=== PATIENT | male | born 1950 | race Hispanic/Latino ===

== ENCOUNTER → 2019-11-08 | Outpatient (CLI) | payer OTHER ==
[~2019-11-08] MED LIST: ASPI-1197 PO; CLOP75TA32 PO; DILT120T PO; HYDR25TA PO; IOHEXOL 350 MG/ML 100ML INFUS..BTL IV ONE; LEVO500T2 PO; LOSA100T58 PO; NITR0.4T SL; OMEP40CA13 PO; PRAV40TA3 PO
== END | disposition home or self-care (01) ==
LOC: RAH 08:13
PROVIDERS: ATTEND Internal Medicine Cardiovascular Disease
DX: I70.203 Unspecified atherosclerosis of native arteries of extremities, bilateral legs (principal); K55.1 Chronic vascular disorders of intestine; I71.4 Abdominal aortic aneurysm, without rupture
CPT/HCPCS: 75635; Q9967 ×2

== ENCOUNTER 2020-02-06 07:41 | Observation (INO) | payer OTHER ==
[~2020-02-06] VITALS: Ht 188 cm; Wt 128.8 kg
[2020-02-06] VITALS (9 sets, daily range): BP systolic 124–151; BP diastolic 62–79
[~2020-02-06 07:41] MED LIST changes: +BUPR150T8 PO; +CILO50TA PO; -DILT120T PO; +FURO40TA7 PO; -HYDR25TA PO; -IOHEXOL 350 MG/ML 100ML INFUS..BTL IV ONE; -LEVO500T2 PO; +MEMA5TAB42 PO; +METO25TA3 PO; -NITR0.4T SL; -OMEP40CA13 PO; +PANT40TA25 PO; +POTA10TA11 PO; +TAMS-1 PO
[2020-02-06 08:35] LABS: BASOPHILS % (AUTO) 0.8 % (0.0-5.0); EOSINOPHILS % (AUTO) 2.2 % (0.0-8.0); HEMATOCRIT 42.8 % (42-54); LYMPHOCYTES % (AUTO) 27.1 % (21.0-51.0); MEAN CORPUSCULAR HEMOGLOBIN 29.1 pg (27.0-33.0); MEAN CORPUSCULAR HGB CONC 32.2 g/dL (32.0-36.0); MEAN CORPUSCULAR VOLUME 90.3 fL (79-99); MONOCYTES % (AUTO) 12.5 % (3.0-13.0); NEUTROPHILS % (AUTO) 56.9 % (40.0-77.0); PLATELET COUNT (AUTO) 202 K/uL (130-400); RED BLOOD CELL COUNT(AUTO) 4.74 MIL/uL (4.50-6.20); RED CELL DISTRIBUTION WIDTH 13.3 % (11.0-15.5); WHITE BLOOD COUNT (AUTO) 5.9 K/uL (4.8-10.8)
[2020-02-06 08:44] LABS: CREATININE 1.8 mg/dL (0.5-1.5); POTASSIUM 3.9 mmol/L (3.5-5.1)
[2020-02-06 08:46] LABS: INR 0.97 (0.85-1.15); PARTIAL THROMBOPLASTIN TIME 30.6 SEC (26.3-35.5); PROTHROMBIN TIME 10.5 SEC (9.6-11.6)
[2020-02-06] MEDS ORDERED: SODIUM CHLORIDE 0.9% 1000ML 1,000 ML IV ONE ×2 (08:51→09:57)
[2020-02-06 08:52] LABS: APPEARANCE,URINE Clear (CLEAR); BILIRUBIN,URINE Negative (NEGATIVE); COLOR,URINE Dark Yellow (YELLOW); GLUCOSE, URINE (UA) Negative (NEGATIVE); KETONES,URINE Negative (NEGATIVE); LEUKOCYTE ESTERASE ,URINE Negative (NEGATIVE); NITRATE,URINE Negative (NEGATIVE); OCCULT BLOOD,URINE Negative (NEGATIVE); PH,URINE 5.5 (5.0-8.0); PROTEIN,URINE Negative (NEGATIVE)
[2020-02-06] MEDS ORDERED: SODIUM BICARB 50MEQ 50ML VIAL ONE (10:59)
[2020-02-06] MEDS ORDERED: HEPARIN SODIUM 1000UNIT/ML 10ML VIAL ONE (10:59)
[2020-02-06] MEDS ORDERED: LIDOCAINE HCL 2% 20ML ONE (11:00)
[2020-02-06] MEDS ORDERED: MEPERIDINE-PF 25 MG/ML SYG ONE ×3 (11:00→12:58)
[2020-02-06] MEDS ORDERED: IOHEXOL-350 50ML VIAL IV ONE ×2 (11:00→13:07)
[2020-02-06] MEDS ORDERED: MIDAZOLAM HCL 1 MG/ML 2ML VIAL ONE ×3 (11:00→12:58)
[2020-02-06] MEDS ORDERED: IOHEXOL 350 MG/ML 100ML INFUS..BTL IV ONE (11:00)
[2020-02-06] MEDS ORDERED: NITROGLYCERIN 2 MG/VIAL VIAL IV ONE (11:00)
[2020-02-06] MEDS ORDERED: SODIUM CHLORIDE 0.9% 1000ML 1,000 ML IV SCH ×2 (11:15→13:45)
[2020-02-06] MEDS ORDERED: NICARDIPINE HCL 25 MG/10 ML ML IV ONE (11:40)
[2020-02-06] MEDS ORDERED: ASPIRIN 325MG EC TAB 325 MG TABLET.DR PO ONE (13:32)
[2020-02-06] MEDS ORDERED: ONDANSETRON HCL 4 MG/2 ML VIAL IVP PRN (13:45)
[2020-02-06] MEDS ORDERED: NITROGLYCERIN 50 MG/D5% WATER 1 BOT IV PRN (13:45)
[2020-02-06] MEDS ORDERED: ACETAMINOPHEN-CODEINE 300/30MG TAB PO PRN ×2 (13:45)
[2020-02-06] MEDS ORDERED: TEMAZEPAM 30 MG CAP PO PRN (13:45)
--- NOTE | 2020-02-06 15:45 | NUR ---
Pt transferred to room 430. Report called to [facility] prior to transfer. Pt awake and alert. Pt denies any pain, nausea or dizziness. TR band remains to right wrist, s any evidence of bleeding. Pt voided good amount and ate a sandwich prior to transfer.
--- NOTE | 2020-02-06 15:50 | NUR ---
RECEIVED TO ROOM 430 VIA BED ACCOMPANIED BY GINNA. RN. PT. AAOX3, RESP.'S EVEN AND UNLABORED. DENIES ANY C/O SOB, DENIES ANY CURRENT PAIN. INSTRUCTED OF BR PER MD ORDERS, VERBALIZED UNDERSTANDING. TR BAND IN PLACE TO RIGHT RADIAL ARTERY, NO ECCHYMOSIS OR HEMATOMA NOTED. CALL LIGHT WITHIN REACH. SPOUSE AT BEDSIDE. BED LOW, SIDE RAILS UP X3.
--- NOTE | 2020-02-06 17:00 | NUR ---
TR RADIAL BAND IN PLACE. REMOVED ORDERED AFTER BALLOON COMPLETELY DEFLATED. NO BLEEDING OR HEMATOMA NOTED. APPLIED DRSG ORDERED AND SECURED WITH TAPE. REMINDED PT. OF CONTINUED BR ORDERED BY MD, PT. AND SPOUSE AT BEDSIDE VERBALIZED MUTUAL UNDERSTANDING. CALL LIGHT WITHIN REACH, VERBALIZED ABILITY TO USE.
--- NOTE | 2020-02-06 17:32 | NUR ---
AJ MCDONALD, CAS, TO NOTIFY RE:PT. ADMITTED TO SERVICE OF DR. HERRMANN, AWAITING RESPONSE.
[2020-02-06] MEDS ORDERED: SIMVASTATIN 20 MG TABLET PO SCH (21:00)
[2020-02-06] MEDS: CILOSTAZOL 100 MG TAB PO SCH (21:55)
[2020-02-07 00:09] VITALS: BP 138/76
[2020-02-07 04:05] VITALS: BP 137/71
[2020-02-07 06:00] LABS: HEMATOCRIT 42.3 % (42-54); MEAN CORPUSCULAR HEMOGLOBIN 28.8 pg (27.0-33.0); MEAN CORPUSCULAR HGB CONC 31.9 g/dL (32.0-36.0); MEAN CORPUSCULAR VOLUME 90.2 fL (79-99); RED BLOOD CELL COUNT(AUTO) 4.69 MIL/uL (4.50-6.20); RED CELL DISTRIBUTION WIDTH 13.6 % (11.0-15.5); WHITE BLOOD COUNT (AUTO) 7.7 K/uL (4.8-10.8)
[2020-02-07 06:18] LABS: CREATININE 1.1 mg/dL (0.5-1.5); POTASSIUM 3.8 mmol/L (3.5-5.1)
[2020-02-07 08:00] VITALS: BP 141/77
[2020-02-07] MEDS ORDERED: ROCURONIUM 10MG/1ML SYR 10 MG/ML ML ONE (08:48)
[2020-02-07] MEDS ORDERED: POTASSIUM CHLORIDE 10 MEQ/TAB.SA PO SCH (09:00)
[2020-02-07] MEDS ORDERED: FUROSEMIDE 40 MG TABLET PO SCH (09:00)
[2020-02-07] MEDS ORDERED: CLOPIDOGREL BISULFATE 75 MG TAB PO SCH ×2 (09:00)
[2020-02-07] MEDS ORDERED: TAMSULOSIN HCL 0.4 MG CAP.ER.24H PO SCH (09:00)
[2020-02-07] MEDS ORDERED: METOPROLOL SUCCINATE 50 MG TAB.SR.24H PO SCH (09:00)
[2020-02-07] MEDS ORDERED: PANTOPRAZOLE SODIUM 40 MG TABLET.DR PO SCH ×2 (09:00)
[2020-02-07] MEDS ORDERED: LOSARTAN 100 MG TABLET PO SCH (09:00)
[2020-02-07] MEDS ORDERED: MEMANTINE HCL 5 MG TABLET PO SCH (09:00)
[2020-02-07] MEDS ORDERED: ASPIRIN 81MG TAB.CHEW PO SCH (09:00)
[2020-02-07] MEDS: CILOSTAZOL 100 MG TAB PO SCH (10:46)
[2020-02-07 12:00] VITALS: BP 145/85
[2020-02-07] MEDS: IPRATROPIUM/ALBUTEROL SULFATE 3 ML SOLUTION IH SCH (13:15)
== END 2020-02-07 18:30 | disposition home or self-care (01) ==
LOC: DAH 07:41 → DAHIP 07:42 → DAH 07:42 → 4AH 16:14
PROVIDERS: ADMIT Internal Medicine Critical Care Medicine; ATTEND Internal Medicine Critical Care Medicine
DX: I25.10 Atherosclerotic heart disease of native coronary artery without angina pectoris (principal); I65.22 Occlusion and stenosis of left carotid artery; J44.9 Chronic obstructive pulmonary disease, unspecified; E78.5 Hyperlipidemia, unspecified; I12.9 Hypertensive chronic kidney disease with stage 1 through stage 4 chronic kidney disease, or unspecified chronic kidney disease; N18.9 Chronic kidney disease, unspecified; E66.9 Obesity, unspecified; Z79.02 Long term (current) use of antithrombotics/antiplatelets; Z79.82 Long term (current) use of aspirin; Z87.891 Personal history of nicotine dependence
CPT/HCPCS: 36415 ×2; 71045; 80048 ×2; 80061; 81003; 83880; 85025; 85027; 85347 ×2; 85610; 85730; 93005; 93458; 94640; 94664; A4215; A4216; A4221; A4222; A4223 ×3; A4606; A4663; C1769 ×2; C1874 ×5; C1887; C1894; C9600; C9601; G0378 ×18; J1644 ×2; J2175 ×3; J2250 ×3; J3490 ×4; J7030 ×2; Q9965; Q9967 ×2; 99156; 99157

== ENCOUNTER 2020-09-20 06:03 | Day surgery (SDC) | payer OTHER ==
[2020-09-18 12:10] LABS: BASOPHILS % (AUTO) 1.2 % (0.0-5.0); EOSINOPHILS % (AUTO) 3.4 % (0.0-8.0); HEMATOCRIT 43.6 % (42-54); LYMPHOCYTES % (AUTO) 23.1 % (21.0-51.0); MEAN CORPUSCULAR HEMOGLOBIN 29.8 pg (27.0-33.0); MEAN CORPUSCULAR HGB CONC 31.9 g/dL (32.0-36.0); MEAN CORPUSCULAR VOLUME 93.4 fL (79-99); MONOCYTES % (AUTO) 12.5 % (3.0-13.0); NEUTROPHILS % (AUTO) 59.5 % (40.0-77.0); PLATELET COUNT (AUTO) 210 K/uL (130-400); RED BLOOD CELL COUNT(AUTO) 4.67 MIL/uL (4.50-6.20); RED CELL DISTRIBUTION WIDTH 13.2 % (11.0-15.5); WHITE BLOOD COUNT (AUTO) 6.5 K/uL (4.8-10.8)
[2020-09-18 12:26] LABS: INR 1.09 (0.85-1.15); PROTHROMBIN TIME 11.6 SEC (9.6-11.6)
[2020-09-18 12:27] LABS: PARTIAL THROMBOPLASTIN TIME 33.1 SEC (26.3-35.5)
[2020-09-18 12:33] LABS: APPEARANCE,URINE Clear (CLEAR); BILIRUBIN,URINE Negative (NEGATIVE); COLOR,URINE Dark Yellow (YELLOW); GLUCOSE, URINE (UA) Negative (NEGATIVE); KETONES,URINE Negative (NEGATIVE); LEUKOCYTE ESTERASE ,URINE Trace (NEGATIVE); NITRATE,URINE Negative (NEGATIVE); OCCULT BLOOD,URINE Negative (NEGATIVE); PROTEIN,URINE Negative (NEGATIVE)
[2020-09-18 12:46] LABS: CREATININE 1.2 mg/dL (0.5-1.5); POTASSIUM 4.5 mmol/L (3.5-5.1)
[2020-09-18 12:52] LABS: BACTERIA,URINE Rare /HPF (None Seen); RBC,URINE None Seen /HPF (0-1); WBC,URINE 0-1 /HPF (0-1)
[2020-09-19 11:18] VITALS: BP 198/83
[~2020-09-20] VITALS: Ht 185.4 cm; Wt 134.3 kg
[~2020-09-20 06:03] MED LIST changes: +BUPR-48 PO; -BUPR150T8 PO; -PANT40TA25 PO; +PANT40TA54 PO; +POTA10CA44 PO; -POTA10TA11 PO; +SPIR25TA PO
[2020-09-20] MEDS ORDERED: SODIUM CHLORIDE 0.9% 1000ML 1,000 ML IV ONE (06:09)
[2020-09-20 06:30] VITALS: BP 185/75
[2020-09-20] MEDS ORDERED: IPRATROPIUM 0.5 MG/2.5 ML INH IH SCH (07:15)
[2020-09-20] MEDS ORDERED: NITROGLYCERIN 2 MG/VIAL VIAL IV ONE (07:37)
[2020-09-20] MEDS ORDERED: IODIXANOL 320 MG/ML 100 ML VIAL ONE (07:37)
[2020-09-20] MEDS ORDERED: SODIUM BICARB 50MEQ 50ML VIAL 50 ML ONE (07:37)
[2020-09-20] MEDS ORDERED: HEPARIN SODIUM 1000UNIT/ML 10ML VIAL ONE (07:37)
[2020-09-20] MEDS ORDERED: LIDOCAINE HCL 2% 20ML ONE (07:38)
[2020-09-20] MEDS ORDERED: MEPERIDINE-PF 25 MG/ML SYG ONE (07:38)
[2020-09-20] MEDS ORDERED: MIDAZOLAM HCL 1 MG/ML 2ML VIAL ONE (07:38)
[2020-09-20 08:00] VITALS: BP 128/66
== END 2020-09-20 08:30 | disposition home or self-care (01) ==
LOC: DAH 06:03
PROVIDERS: ATTEND Internal Medicine Cardiovascular Disease
DX: I73.9 Peripheral vascular disease, unspecified (principal); R00.0 Tachycardia, unspecified; Z88.8 Allergy status to other drugs, medicaments and biological substances; Z53.8 Procedure and treatment not carried out for other reasons
CPT/HCPCS: 36415; 71045; 80048; 81001; 85025; 85610; 85730; 93005; 94640; J1644; J3490 ×3; J7030; Q9967; J2175; J2250

== ENCOUNTER 2020-11-22 19:53 | Inpatient (IN) | payer OTHER ==
[~2020-11-22] VITALS: Ht 188 cm; Wt 133.2 kg
[~2020-11-22 19:53] MED LIST changes: -BUPR-48 PO; +BUPR-49 PO
[2020-11-22 20:38] LABS: BASOPHILS % (AUTO) 0.6 % (0.0-5.0); EOSINOPHILS % (AUTO) 3.3 % (0.0-8.0); HEMATOCRIT 40.5 % (42-54); MEAN CORPUSCULAR HGB CONC 32.3 g/dL (32.0-36.0); MEAN CORPUSCULAR VOLUME 89.6 fL (79-99); MONOCYTES % (AUTO) 9.9 % (3.0-13.0); NEUTROPHILS % (AUTO) 60.8 % (40.0-77.0); PLATELET COUNT (AUTO) 214 K/uL (130-400); RED BLOOD CELL COUNT(AUTO) 4.52 MIL/uL (4.50-6.20); RED CELL DISTRIBUTION WIDTH 14.2 % (11.0-15.5); WHITE BLOOD COUNT (AUTO) 8.5 K/uL (4.8-10.8)
[2020-11-22 20:51] LABS: INR 1.02 (0.85-1.15); PROTHROMBIN TIME 11.1 SEC (9.6-11.6)
[2020-11-22 20:53] LABS: PARTIAL THROMBOPLASTIN TIME 31.1 SEC (26.3-35.5)
[2020-11-22 20:57] LABS: POTASSIUM 4.2 mmol/L (3.5-5.1)
[2020-11-22 21:01] LABS: ALBUMIN 3.4 g/dL (3.5-5.0); BILIRUBIN,TOTAL 0.3 mg/dL (0.2-1.0); TOTAL PROTEIN, SERUM 6.6 g/dL (6.0-8.3)
[2020-11-22 21:03] LABS: B-TYPE NATRIURETIC PEPTIDE 22 pg/mL (0-100)
[2020-11-22] MEDS ORDERED: HYDROMORPHONE 1 MG INJ ONE (22:37)
[2020-11-22] MEDS ORDERED: LACTULOSE 20 GM/30 ML UDCUP PO PRN (23:00)
[2020-11-22] MEDS ORDERED: ONDANSETRON 4MG INJ IV PRN (23:00)
[2020-11-22] MEDS ORDERED: ACETAMINOPHEN 325 MG TAB PO PRN ×2 (23:00)
[2020-11-22] MEDS ORDERED: HYDROCODONE/ACETAMINOPHEN 5/325 MG TAB PO PRN ×2 (23:00)
[2020-11-22] MEDS ORDERED: LABETALOL 20MG SYG IV PRN (23:15)
[2020-11-22 23:20] LABS: HEMOGLOBIN A1C 7.3 % (4.0-6.0)
[2020-11-22 23:40] LABS: BILIRUBIN,URINE Negative (NEGATIVE); COLOR,URINE Yellow (YELLOW); GLUCOSE, URINE (UA) Negative (NEGATIVE); KETONES,URINE Trace mg/dL (NEGATIVE); LEUKOCYTE ESTERASE ,URINE Negative (NEGATIVE); NITRATE,URINE Negative (NEGATIVE); OCCULT BLOOD,URINE Negative (NEGATIVE); PROTEIN,URINE Negative (NEGATIVE)
[2020-11-22] MEDS ORDERED: DiphenhydrAMINE HCL 50 MG/ML VIAL ONE (23:41)
[2020-11-22] MEDS ORDERED: HALOPERIDOL INJ 5 MG/ML VIAL ONE (23:41)
[2020-11-22 23:45] LABS: APPEARANCE,URINE SLIGHTLY CLOUDY (CLEAR)
[2020-11-22 23:57] LABS: RBC,URINE 0-1 /HPF (0-1)
[2020-11-22 23:58] LABS: AMORPHOUS SEDIMENT,UR Many /LPF (None Seen); BACTERIA,URINE Few /HPF (None Seen); SQUAMOUS EPITHELIAL CELL,UR 0-2 /HPF (0-2); WBC,URINE 0-1 /HPF (0-1)
[2020-11-23] MEDS ORDERED: HALOPERIDOL INJ 5 MG/ML VIAL IM PRN (00:30)
[2020-11-23] MEDS ORDERED: DiphenhydrAMINE HCL 50 MG/ML VIAL IM PRN (00:30)
[2020-11-23] MEDS ORDERED: HEPARIN 25,000 UNITS/250ML D5W 250 ML IV SCH (01:15)
[2020-11-23] MEDS ORDERED: HEPARIN 5,000 UNIT VIAL ONE (01:50)
[2020-11-23] MEDS ORDERED: HEPARIN 25,000 UNITS/250ML D5W 250 ML IV ONE (01:51)
[2020-11-23 02:45] VITALS: BP 169/74
[2020-11-23 03:25] LABS: BASOPHILS % (AUTO) 0.7 % (0.0-5.0); EOSINOPHILS % (AUTO) 3.3 % (0.0-8.0); HEMATOCRIT 39.5 % (42-54); LYMPHOCYTES % (AUTO) 30.2 % (21.0-51.0); MEAN CORPUSCULAR HEMOGLOBIN 29.2 pg (27.0-33.0); MEAN CORPUSCULAR HGB CONC 32.7 g/dL (32.0-36.0); MEAN CORPUSCULAR VOLUME 89.4 fL (79-99); MONOCYTES % (AUTO) 10.3 % (3.0-13.0); NEUTROPHILS % (AUTO) 55.1 % (40.0-77.0); PLATELET COUNT (AUTO) 201 K/uL (130-400); RED BLOOD CELL COUNT(AUTO) 4.42 MIL/uL (4.50-6.20); RED CELL DISTRIBUTION WIDTH 14.1 % (11.0-15.5)
[2020-11-23 03:37] LABS: CHOLESTEROL 129 mg/dL (<200); HDL CHOLESTEROL 98 mg/dL (29-71); LDL DIRECT 69 mg/dL (0-99); TRIGLYCERIDES 32 mg/dL (30-200)
[2020-11-23] MEDS ORDERED: POTA-10 PO (04:54)
[2020-11-23] MEDS ORDERED: AZIT250T9 PO (04:54)
[2020-11-23] MEDS ORDERED: SPIRONOLACTONE 25 MG TAB PO SCH (05:00)
[2020-11-23 08:00] VITALS: BP 158/77
[2020-11-23] MEDS: BUPROPION HCL 150 MG TABLET.SA PO SCH (09:30)
[2020-11-23] MEDS: NICOTINE 21 MG/ 24 HR PATCH TD SCH (09:30)
[2020-11-23] MEDS: LOSARTAN 100 MG TABLET PO SCH (09:30)
[2020-11-23] MEDS: MEMANTINE HCL 5 MG TABLET PO SCH (09:31)
[2020-11-23] MEDS: TAMSULOSIN HCL 0.4 MG CAP.ER.24H PO SCH (09:31)
[2020-11-23] MEDS: FUROSEMIDE 40 MG TABLET PO SCH (09:31)
[2020-11-23] MEDS: METOPROLOL SUCCINATE 50 MG TAB.SR.24H PO SCH (09:31)
[2020-11-23] MEDS: POTASSIUM CHLORIDE 10MEQ SR TAB PO SCH (09:31)
[2020-11-23 12:00] VITALS: BP 132/49
[2020-11-23] MEDS ORDERED: ALBUTEROL 0.083% 2.5 MG/3 ML INH IH SCH (14:00)
[2020-11-23] MEDS: SPIRONOLACTONE 25 MG TAB PO SCH ×2 (15:12→22:20)
[2020-11-23] MEDS: CLOPIDOGREL 75MG TAB PO SCH (15:12)
[2020-11-23] MEDS: PANTOPRAZOLE 40 MG TAB DR PO SCH (15:13)
[2020-11-23] MEDS: ASPIRIN 325 MG TABLET PO SCH (15:13)
[2020-11-23] MEDS ORDERED: IOHEXOL-350 50ML VIAL IV ONE (15:36)
[2020-11-23] MEDS ORDERED: IOHEXOL 350 MG/ML 100ML INFUS..BTL IV ONE (15:36)
[2020-11-23 16:00] VITALS: BP 135/65
[2020-11-23 16:06] LABS: ABG BASE EXCESS 3.6 mmol/L (-2.0-3.0); ABG HCO3 27.6 mmol/L (21.0-28.0); ABG OXYGEN SATURATION 94.3 % (95.0-99.0); ABG PCO2 40 mmHg (35-48)
[2020-11-23] MEDS: IPRATROPIUM/ALBUTEROL SULFATE 3 ML SOLUTION IH SCH ×2 (16:09→21:51)
[2020-11-23 19:26] VITALS: BP 134/52
[2020-11-24] VITALS (7 sets, daily range): BP systolic 124–160; BP diastolic 54–77
[2020-11-24] MEDS: SPIRONOLACTONE 25 MG TAB PO SCH ×3 (05:18→20:50)
[2020-11-24 05:39] LABS: BASOPHILS % (AUTO) 0.5 % (0.0-5.0); HEMATOCRIT 41.5 % (42-54); LYMPHOCYTES % (AUTO) 24.1 % (21.0-51.0); MEAN CORPUSCULAR HEMOGLOBIN 28.1 pg (27.0-33.0); MEAN CORPUSCULAR HGB CONC 30.4 g/dL (32.0-36.0); MEAN CORPUSCULAR VOLUME 92.4 fL (79-99); PLATELET COUNT (AUTO) 222 K/uL (130-400); RED BLOOD CELL COUNT(AUTO) 4.49 MIL/uL (4.50-6.20); RED CELL DISTRIBUTION WIDTH 14.7 % (11.0-15.5); WHITE BLOOD COUNT (AUTO) 10.5 K/uL (4.8-10.8)
[2020-11-24 05:57] LABS: BILIRUBIN,TOTAL 0.7 mg/dL (0.2-1.0); CREATININE 1.1 mg/dL (0.5-1.5); POTASSIUM 3.4 mmol/L (3.5-5.1); TOTAL PROTEIN, SERUM 6.8 g/dL (6.0-8.3)
[2020-11-24] MEDS: IPRATROPIUM/ALBUTEROL SULFATE 3 ML SOLUTION IH SCH ×3 (06:08→22:54)
[2020-11-24 06:21] LABS: B-TYPE NATRIURETIC PEPTIDE 21 pg/mL (0-100)
[2020-11-24] MEDS: LOSARTAN 100 MG TABLET PO SCH (09:05)
[2020-11-24] MEDS: PANTOPRAZOLE 40 MG TAB DR PO SCH (09:05)
[2020-11-24] MEDS: BUPROPION HCL 150 MG TABLET.SA PO SCH (09:05)
[2020-11-24] MEDS: TAMSULOSIN HCL 0.4 MG CAP.ER.24H PO SCH (09:06)
[2020-11-24] MEDS: MEMANTINE HCL 5 MG TABLET PO SCH (09:06)
[2020-11-24] MEDS: FUROSEMIDE 40 MG TABLET PO SCH (09:06)
[2020-11-24] MEDS: CLOPIDOGREL 75MG TAB PO SCH (09:06)
[2020-11-24] MEDS: ASPIRIN 325 MG TABLET PO SCH (09:06)
[2020-11-24] MEDS: ENOXAPARIN SODIUM 40 MG/0.4 ML SYRINGE SQ SCH (09:07)
[2020-11-24] MEDS: POTASSIUM CHLORIDE 10MEQ SR TAB PO SCH (09:07)
[2020-11-24] MEDS: NICOTINE 21 MG/ 24 HR PATCH TD SCH (09:08)
[2020-11-24] MEDS: METOPROLOL SUCCINATE 50 MG TAB.SR.24H PO SCH (09:09)
[2020-11-24] MEDS ORDERED: LACTULOSE 20 GM/30 ML UDCUP PO PRN (15:00)
[2020-11-24] MEDS: INSULIN HUMULIN R 100 UNIT/ML 3ML SQ SCH (20:51)
[2020-11-25 03:15] VITALS: BP 142/66
[2020-11-25] MEDS: SPIRONOLACTONE 25 MG TAB PO SCH ×3 (05:00→22:08)
[2020-11-25] MEDS: IPRATROPIUM/ALBUTEROL SULFATE 3 ML SOLUTION IH SCH ×3 (07:26→22:02)
[2020-11-25] MEDS: INSULIN HUMULIN R 100 UNIT/ML 3ML SQ SCH ×4 (07:30→21:00)
[2020-11-25 08:00] VITALS: BP 149/77
[2020-11-25] MEDS: ASPIRIN 325 MG TABLET PO SCH (09:23)
[2020-11-25] MEDS: LOSARTAN 100 MG TABLET PO SCH (09:23)
[2020-11-25] MEDS: TAMSULOSIN HCL 0.4 MG CAP.ER.24H PO SCH (09:23)
[2020-11-25] MEDS: FUROSEMIDE 40 MG TABLET PO SCH (09:24)
[2020-11-25] MEDS: MEMANTINE HCL 5 MG TABLET PO SCH (09:25)
[2020-11-25] MEDS: POTASSIUM CHLORIDE 10MEQ SR TAB PO SCH (09:26)
[2020-11-25] MEDS: METOPROLOL SUCCINATE 50 MG TAB.SR.24H PO SCH (09:26)
[2020-11-25] MEDS: PANTOPRAZOLE 40 MG TAB DR PO SCH (09:26)
[2020-11-25] MEDS: BUPROPION HCL 150 MG TABLET.SA PO SCH (09:28)
[2020-11-25] MEDS: ENOXAPARIN SODIUM 40 MG/0.4 ML SYRINGE SQ SCH (09:30)
[2020-11-25] MEDS: NICOTINE 21 MG/ 24 HR PATCH TD SCH (09:31)
[2020-11-25] MEDS: CLOPIDOGREL 75MG TAB PO SCH (09:37)
[2020-11-25 11:41] VITALS: BP 157/78
[2020-11-25 15:58] VITALS: BP 112/51
[2020-11-25 20:03] VITALS: BP 130/50
[2020-11-25 23:39] VITALS: BP 129/65
[2020-11-26 03:53] VITALS: BP 168/83
[2020-11-26] MEDS: SPIRONOLACTONE 25 MG TAB PO SCH ×3 (05:35→22:55)
[2020-11-26] MEDS: INSULIN HUMULIN R 100 UNIT/ML 3ML SQ SCH ×4 (06:31→21:00)
[2020-11-26] MEDS: IPRATROPIUM/ALBUTEROL SULFATE 3 ML SOLUTION IH SCH ×3 (07:44→22:00)
[2020-11-26 08:00] VITALS: BP 154/68
[2020-11-26] MEDS: ASPIRIN 325 MG TABLET PO SCH (08:38)
[2020-11-26] MEDS: LOSARTAN 100 MG TABLET PO SCH (08:38)
[2020-11-26] MEDS: TAMSULOSIN HCL 0.4 MG CAP.ER.24H PO SCH (08:39)
[2020-11-26] MEDS: FUROSEMIDE 40 MG TABLET PO SCH (08:39)
[2020-11-26] MEDS: MEMANTINE HCL 5 MG TABLET PO SCH (08:40)
[2020-11-26] MEDS: CLOPIDOGREL 75MG TAB PO SCH (08:40)
[2020-11-26] MEDS: PANTOPRAZOLE 40 MG TAB DR PO SCH (08:41)
[2020-11-26] MEDS: METOPROLOL SUCCINATE 50 MG TAB.SR.24H PO SCH (08:41)
[2020-11-26] MEDS: BUPROPION HCL 150 MG TABLET.SA PO SCH (08:41)
[2020-11-26] MEDS: POTASSIUM CHLORIDE 10MEQ SR TAB PO SCH (08:41)
[2020-11-26] MEDS: ENOXAPARIN SODIUM 40 MG/0.4 ML SYRINGE SQ SCH (08:42)
[2020-11-26] MEDS: NICOTINE 21 MG/ 24 HR PATCH TD SCH (08:43)
[2020-11-26 11:07] LABS: T4 (THYROXINE) 7.4 ug/dL (4.7-13.3); THYROID STIMULATING HORMONE 5.04 uIU/mL (0.36-3.74)
[2020-11-26 12:00] VITALS: BP 139/75
[2020-11-26 17:47] VITALS: BP 119/73
[2020-11-26 20:41] VITALS: BP 152/80
[2020-11-26] MEDS: TRAZODONE HCL 50 MG TAB PO SCH (22:55)
[2020-11-26 23:41] VITALS: BP 133/61
[2020-11-27] MEDS: SPIRONOLACTONE 25 MG TAB PO SCH ×3 (04:23→20:27)
[2020-11-27 05:22] VITALS: BP 148/81
[2020-11-27 05:46] LABS: BASOPHILS % (AUTO) 0.5 % (0.0-5.0); EOSINOPHILS % (AUTO) 4.6 % (0.0-8.0); HEMATOCRIT 41.8 % (42-54); LYMPHOCYTES % (AUTO) 20.2 % (21.0-51.0); MEAN CORPUSCULAR HEMOGLOBIN 27.9 pg (27.0-33.0); MEAN CORPUSCULAR HGB CONC 30.6 g/dL (32.0-36.0); MEAN CORPUSCULAR VOLUME 91.3 fL (79-99); MONOCYTES % (AUTO) 10.5 % (3.0-13.0); NEUTROPHILS % (AUTO) 63.8 % (40.0-77.0); PLATELET COUNT (AUTO) 224 K/uL (130-400); RED BLOOD CELL COUNT(AUTO) 4.58 MIL/uL (4.50-6.20); RED CELL DISTRIBUTION WIDTH 14.9 % (11.0-15.5); WHITE BLOOD COUNT (AUTO) 9.3 K/uL (4.8-10.8)
[2020-11-27] MEDS: IPRATROPIUM/ALBUTEROL SULFATE 3 ML SOLUTION IH SCH ×3 (06:22→22:52)
[2020-11-27] MEDS: INSULIN HUMULIN R 100 UNIT/ML 3ML SQ SCH ×4 (07:15→20:27)
[2020-11-27 07:30] VITALS: BP 136/62
[2020-11-27] MEDS: LOSARTAN 100 MG TABLET PO SCH (08:53)
[2020-11-27] MEDS: CLOPIDOGREL 75MG TAB PO SCH (08:53)
[2020-11-27] MEDS: METOPROLOL SUCCINATE 50 MG TAB.SR.24H PO SCH (08:53)
[2020-11-27] MEDS: ASPIRIN 325 MG TABLET PO SCH (08:53)
[2020-11-27] MEDS: PANTOPRAZOLE 40 MG TAB DR PO SCH (08:54)
[2020-11-27] MEDS: TAMSULOSIN HCL 0.4 MG CAP.ER.24H PO SCH (08:55)
[2020-11-27] MEDS: NICOTINE 21 MG/ 24 HR PATCH TD SCH (08:55)
[2020-11-27] MEDS: MEMANTINE HCL 5 MG TABLET PO SCH (08:55)
[2020-11-27] MEDS: POTASSIUM CHLORIDE 10MEQ SR TAB PO SCH (08:55)
[2020-11-27] MEDS: FUROSEMIDE 40 MG TABLET PO SCH (08:55)
[2020-11-27] MEDS: ENOXAPARIN SODIUM 40 MG/0.4 ML SYRINGE SQ SCH (08:56)
[2020-11-27 11:00] VITALS: BP 145/71
[2020-11-27 15:41] VITALS: BP 114/71
[2020-11-27 19:00] VITALS: BP 131/59
[2020-11-27] MEDS: TRAZODONE HCL 50 MG TAB PO SCH (20:27)
[2020-11-28] VITALS: BP 126/59
[2020-11-28 04:00] VITALS: BP 138/62
[2020-11-28] MEDS: SPIRONOLACTONE 25 MG TAB PO SCH ×2 (04:28→13:45)
[2020-11-28] MEDS: INSULIN HUMULIN R 100 UNIT/ML 3ML SQ SCH ×3 (06:17→16:30)
[2020-11-28] MEDS: IPRATROPIUM/ALBUTEROL SULFATE 3 ML SOLUTION IH SCH ×2 (07:18→13:15)
[2020-11-28 07:29] VITALS: BP 121/57
[2020-11-28] MEDS: FUROSEMIDE 40 MG TABLET PO SCH (08:22)
[2020-11-28] MEDS: TAMSULOSIN HCL 0.4 MG CAP.ER.24H PO SCH (08:22)
[2020-11-28] MEDS: CLOPIDOGREL 75MG TAB PO SCH (08:23)
[2020-11-28] MEDS: LOSARTAN 100 MG TABLET PO SCH (08:23)
[2020-11-28] MEDS: PANTOPRAZOLE 40 MG TAB DR PO SCH (08:23)
[2020-11-28] MEDS: METOPROLOL SUCCINATE 50 MG TAB.SR.24H PO SCH (08:24)
[2020-11-28] MEDS: POTASSIUM CHLORIDE 10MEQ SR TAB PO SCH (08:25)
[2020-11-28] MEDS: ASPIRIN 325 MG TABLET PO SCH (08:25)
[2020-11-28] MEDS: MEMANTINE HCL 5 MG TABLET PO SCH (08:25)
[2020-11-28] MEDS: ENOXAPARIN SODIUM 40 MG/0.4 ML SYRINGE SQ SCH (08:26)
[2020-11-28 08:33] LABS: ALBUMIN 3.1 g/dL (3.5-5.0); CREATININE 1.1 mg/dL (0.5-1.5); CRP QUANTITATIVE 29.3 mg/L (0.00-9.0)
[2020-11-28 08:52] LABS: BASOPHILS % (AUTO) 0.7 % (0.0-5.0); EOSINOPHILS % (AUTO) 4.9 % (0.0-8.0); HEMATOCRIT 42.7 % (42-54); LYMPHOCYTES % (AUTO) 24.7 % (21.0-51.0); MEAN CORPUSCULAR HEMOGLOBIN 28.9 pg (27.0-33.0); MEAN CORPUSCULAR HGB CONC 31.9 g/dL (32.0-36.0); MEAN CORPUSCULAR VOLUME 90.9 fL (79-99); MONOCYTES % (AUTO) 10.1 % (3.0-13.0); NEUTROPHILS % (AUTO) 58.9 % (40.0-77.0); PLATELET COUNT (AUTO) 214 K/uL (130-400); RED CELL DISTRIBUTION WIDTH 14.7 % (11.0-15.5); WHITE BLOOD COUNT (AUTO) 8.6 K/uL (4.8-10.8)
[2020-11-28 09:10] LABS: B-TYPE NATRIURETIC PEPTIDE 7 pg/mL (0-100)
[2020-11-28 09:51] LABS: ERYTHROCYTE SEDIMENTATION RATE 41 MM/HR (0-20)
[2020-11-28 11:10] VITALS: BP 126/64
[2020-11-28] MEDS: NICOTINE 21 MG/ 24 HR PATCH TD SCH (13:45)
[2020-11-28 16:00] VITALS: BP 102/64
[2020-11-28] MEDS ORDERED: AEC81 PO (18:17)
[2020-11-28] MEDS ORDERED: MEMA10TA11 PO (18:17)
[2020-11-28] MEDS ORDERED: TRAZ-253 PO (18:17)
[2020-11-28] MEDS ORDERED: CLOP75TA14 PO (18:17)
== END 2020-11-28 20:25 | disposition home health service (06) | DRG 300 ==
LOC: EDH 19:53 → EDHIP 22:51 → 3AH 11-23 02:03
PROVIDERS: ADMIT Internal Medicine; ATTEND Internal Medicine
DX: E11.51 Type 2 diabetes mellitus with diabetic peripheral angiopathy without gangrene (principal); J44.1 Chronic obstructive pulmonary disease with (acute) exacerbation; E66.2 Morbid (severe) obesity with alveolar hypoventilation; I70.209 Unspecified atherosclerosis of native arteries of extremities, unspecified extremity; E78.5 Hyperlipidemia, unspecified; I10 Essential (primary) hypertension; I70.201 Unspecified atherosclerosis of native arteries of extremities, right leg; I87.2 Venous insufficiency (chronic) (peripheral); I25.10 Atherosclerotic heart disease of native coronary artery without angina pectoris; K76.0 Fatty (change of) liver, not elsewhere classified; F03.90 Unspecified dementia, unspecified severity, without behavioral disturbance, psychotic disturbance, mood disturbance, and anxiety; K40.20 Bilateral inguinal hernia, without obstruction or gangrene, not specified as recurrent; I35.0 Nonrheumatic aortic (valve) stenosis; Z20.822 Contact with and (suspected) exposure to COVID-19; F32.9 Major depressive disorder, single episode, unspecified; L02.92 Furuncle, unspecified; I16.0 Hypertensive urgency; Z87.891 Personal history of nicotine dependence; Z79.899 Other long term (current) drug therapy; Z68.37 Body mass index [BMI] 37.0-37.9, adult; Z87.01 Personal history of pneumonia (recurrent); Z95.5 Presence of coronary angioplasty implant and graft; Z88.8 Allergy status to other drugs, medicaments and biological substances; Z82.3 Family history of stroke; Z83.3 Family history of diabetes mellitus; Z82.5 Family history of asthma and other chronic lower respiratory diseases; Z82.0 Family history of epilepsy and other diseases of the nervous system; Z80.0 Family history of malignant neoplasm of digestive organs; Z82.49 Family history of ischemic heart disease and other diseases of the circulatory system
CPT/HCPCS: 36415; 36600; 70450; 71045; 75635; 80048; 80053; 80061; 81001; 82040; 82607; 82803; 82948; 83036; 83605; 83880; 84145; 84436; 84443; 84484; 85025; 85610; 85651; 85730; 86140; 86592; 87040; 87426; 93005; 93925; 93970; 94640; 94664; 97039; G0378; J1170; J1200; J1630; J1644; J1650; Q9967